=== PATIENT | female | born 1965 | race Caucasian/White ===

== ENCOUNTER 2019-04-05 13:51 | Emergency (ER) | payer BC ==
[~2019-04-05] VITALS: Ht 165.1 cm; Wt 70.8 kg
[2019-04-05 13:55] VITALS: BP 113/96
[2019-04-05 14:33] VITALS: BP 120/88
== END 2019-04-05 14:32 | disposition home or self-care (01) ==
LOC: MED 13:51
DX: L03.115 Cellulitis of right lower limb (principal); T36.1X5A Adverse effect of cephalosporins and other beta-lactam antibiotics, initial encounter; Z88.1 Allergy status to other antibiotic agents; Z88.8 Allergy status to other drugs, medicaments and biological substances; Y92.89 Other specified places as the place of occurrence of the external cause
CPT/HCPCS: 99283